=== PATIENT | female | born 1980 | race African-American/Black ===

== ENCOUNTER 2018-05-02 05:44 | Inpatient (IN) ==
[2018-05-02] MEDS ORDERED: FAMOTIDINE 20 MG/2 ML VIAL IV PRN (05:48)
[2018-05-02] MEDS ORDERED: CITRIC ACID/SODIUM CITRATE 30 ML UDCUP PO PRN (05:48)
[2018-05-02] MEDS ORDERED: ceFAZolin 2,000 MG in PREMIX 1 EACH IV PRN (05:52)
[2018-05-02] MEDS ORDERED: OXYTOCIN/LR 20 UNIT/1,000 ML BAG IV PRN (05:52)
[2018-05-02 06:26] LABS: Basophils % 0.3 % (0.0-0.8); Eosinophils # 0.2 10*3/uL (0.0-0.87); Eosinophils % 2.2 % (0.00-10.9); Hematocrit 34.3 VOL% (35.7-47.0); Hemoglobin 11.8 GM/DL (12.0-16.0); Immature Granulocytes % 1.5 %; Immature Granulocytes Absolute 0.17 #; Lymphocytes # 1.8 10*3/uL (1.4-4.0); Lymphocytes % 15.7 % (21.3-54.2); Mean Corpuscular HGB Conc 34.4 GM/DL (32-36); Mean Corpuscular Hemoglobin 32 PG (27-34); Mean Corpuscular Volume 94.2 FL (87-102); Mean Platelet Volume 12.3 FL (9.6-12.0); Monocytes # 0.9 10*3/uL (0.11-0.8); Monocytes % 7.7 % (1.7-12.7); Neutrophils # 8.1 10*3/uL (1.4-7.4); Neutrophils % 72.6 % (38.7-73.9); Platelet Count 140 T/CUMM (130-400); Red Blood Count 3.64 MC/CUMM (3.8-5.5); Red Cell Distribution Width 13.5 % (9.3-17.3); White Blood Count 11.2 T/CUMM (4-12)
[2018-05-02] MEDS: LACTATED RINGERS 1,000 ML IV SCH ×2 (06:30→22:27)
[2018-05-02] MEDS ORDERED: ACETAMINOPHEN 325 MG TABLET PO PRN (07:58)
[2018-05-02] MEDS ORDERED: ONDANSETRON 4 MG/2 ML VIAL IV PRN (07:58)
[2018-05-02] MEDS ORDERED: TISSUE ADHESIVE 1 EACH APPLICATOR TOP ONE (07:58)
[2018-05-02] MEDS ORDERED: OXYTOCIN/LR 20 UNIT/1,000 ML BAG IV ONE (07:58)
[2018-05-02] MEDS ORDERED: RHO(D) IMMUNE GLOBULIN 300 MCG SYRINGE IM ONE (07:58)
[2018-05-02] MEDS ORDERED: MAGNESIUM HYDROXIDE SUSP 30 ML UDCUP PO PRN (07:58)
[2018-05-02] MEDS ORDERED: LACTATED RINGERS 1,000 ML IV SCH (08:00)
[2018-05-02] MEDS ORDERED: ceFAZolin 1,000 MG in SYRINGE 1 EACH IV SCH (08:00)
[2018-05-02 09:25] LABS: Cord Arterial Blood HCO3 17.5 MMOL/L
[2018-05-02] MEDS ORDERED: diphenhydrAMINE 50 MG/1 ML VIAL ONE (10:20)
[2018-05-02] MEDS ORDERED: diphenhydrAMINE 50 MG/1 ML VIAL IV ONE (10:45)
[2018-05-02] MEDS ORDERED: MORPHINE 10 MG/10 ML VIAL ONE (10:54)
[2018-05-02] MEDS ORDERED: PHENYLEPHRINE 1 MG/10 ML SYRINGE IV ONE (10:54)
[2018-05-02] MEDS ORDERED: ePHEDrine 50 MG/ML AMP ONE (10:54)
[2018-05-02] MEDS ORDERED: BUPIVACAINE SPINAL 0.75% 2 ML AMP SPINAL ONE (10:54)
[2018-05-02] MEDS ORDERED: ONDANSETRON 4 MG/2 ML VIAL ONE (10:54)
[2018-05-02] MEDS ORDERED: LACTATED RINGERS 1,000 ML IV ONE (10:54)
[2018-05-02] MEDS: IBUPROFEN 800 MG TABLET PO PRN (14:56)
[2018-05-02 19:14] LABS: Basophils % 0.2 % (0.0-0.8); Eosinophils # 0.1 10*3/uL (0.0-0.87); Eosinophils % 0.4 % (0.00-10.9); Hematocrit 29.6 VOL% (35.7-47.0); Hemoglobin 9.8 GM/DL (12.0-16.0); Immature Granulocytes % 0.7 %; Immature Granulocytes Absolute 0.11 #; Lymphocytes # 0.8 10*3/uL (1.4-4.0); Lymphocytes % 5.5 % (21.3-54.2); Mean Corpuscular HGB Conc 33.1 GM/DL (32-36); Mean Corpuscular Hemoglobin 32 PG (27-34); Mean Corpuscular Volume 97.4 FL (87-102); Mean Platelet Volume 11.5 FL (9.6-12.0); Monocytes # 0.9 10*3/uL (0.11-0.8); Monocytes % 5.9 % (1.7-12.7); Neutrophils # 13.2 10*3/uL (1.4-7.4); Neutrophils % 87.3 % (38.7-73.9); Platelet Count 129 T/CUMM (130-400); Red Blood Count 3.04 MC/CUMM (3.8-5.5); Red Cell Distribution Width 13.5 % (9.3-17.3); White Blood Count 15.1 T/CUMM (4-12)
[2018-05-02] MEDS: SIMETHICONE CHEW 80 MG TABLET PO PRN (19:37)
[2018-05-02] MEDS: ceFAZolin 1,000 MG in SYRINGE 1 EACH IV SCH (19:37)
[2018-05-03] MEDS: DOCUSATE SODIUM 100 MG CAPSULE PO SCH ×4 (02:44→20:29)
[2018-05-03] MEDS: IBUPROFEN 800 MG TABLET PO PRN ×3 (04:14→21:36)
[2018-05-03] MEDS: ceFAZolin 1,000 MG in SYRINGE 1 EACH IV SCH (04:26)
[2018-05-03 06:29] LABS: Basophils % 0.1 % (0.0-0.8); Eosinophils # 0.2 10*3/uL (0.0-0.87); Eosinophils % 0.7 % (0.00-10.9); Hematocrit 28.5 VOL% (35.7-47.0); Hemoglobin 9.8 GM/DL (12.0-16.0); Immature Granulocytes % 1.1 %; Immature Granulocytes Absolute 0.22 #; Lymphocytes # 0.9 10*3/uL (1.4-4.0); Lymphocytes % 4.5 % (21.3-54.2); Mean Corpuscular HGB Conc 34.4 GM/DL (32-36); Mean Corpuscular Hemoglobin 33 PG (27-34); Mean Platelet Volume 11.9 FL (9.6-12.0); Monocytes # 1.2 10*3/uL (0.11-0.8); Neutrophils # 17.6 10*3/uL (1.4-7.4); Neutrophils % 87.6 % (38.7-73.9); Platelet Count 129 T/CUMM (130-400); Red Blood Count 2.97 MC/CUMM (3.8-5.5); Red Cell Distribution Width 13.5 % (9.3-17.3); White Blood Count 20.1 T/CUMM (4-12)
[2018-05-03 06:52] LABS: Band Neutrophils 3 % (0-10); Lymphocytes 8 % (20-55); Segmented Neutrophils 86 % (50-85); Total Cells Counted 100
[2018-05-03 06:53] LABS: Hypochromasia 1+; Platelet Estimate Normal
[2018-05-03] MEDS: MULTIVITAMIN (PRENATAL) TABLET PO SCH (09:06)
[2018-05-03] MEDS: SIMETHICONE CHEW 80 MG TABLET PO PRN ×2 (13:35→20:30)
[2018-05-03] MEDS ORDERED: BISACODYL 10 MG SUPP RECTAL PRN (19:47)
[2018-05-03] MEDS: METOCLOPRAMIDE 10 MG TABLET PO SCH (20:30)
[2018-05-04] MEDS: METOCLOPRAMIDE 10 MG TABLET PO SCH (04:05)
[2018-05-04] MEDS: IBUPROFEN 800 MG TABLET PO PRN (06:07)
[2018-05-04] MEDS: SIMETHICONE CHEW 80 MG TABLET PO PRN (06:10)
[2018-05-04 07:45] VITALS: BP 131/87
[2018-05-04] MEDS: DOCUSATE SODIUM 100 MG CAPSULE PO SCH (09:58)
[2018-05-04] MEDS ORDERED: DIPH/TET/ACEL PERT BOOSTER VACCINE 0.5 ML VIAL IM ONE (12:03)
== END 2018-05-04 12:20 | disposition home or self-care (01) | DRG 766 ==
LOC: N.LDOUT 05:44 → N.LD 05:46 → N.OB 05-03 14:00
PROVIDERS: ADMIT Obstetrics & Gynecology; ATTEND Obstetrics & Gynecology
PROC: LDCSECT (ICD-10-PCS; 2018-05-02 08:00)